=== PATIENT | male | born 1975 | race Two or more races ===

== ENCOUNTER 2024-07-12 19:34 | Emergency (ER) | payer MEDICAID, SELFPAY ==
[2024-07-12 19:51] VITALS: PULSE 77; O2SAT 98; BMI 33.3
[2024-07-12 21:08] VITALS: BP 130/85; PULSE 75; RESP 18; TEMP 36.4; O2SAT 98
--- NOTE | 2024-07-12 21:37 | XR_ITS ---
Examination: PA chest single view Technique: Upright PA chest single view Exam date and time: July 12, 2024 10:11 PM Indications: Chest pain shortness of breath today Findings: Normal heart size Atelectasis versus mild pneumonia left base Right lung clear Intact osseous structures Impression: Atelectasis versus mild pneumonia left base
[2024-07-12] MEDS: DIAZEPAM 5 MG TABLET 10 MG PO (21:58)
[2024-07-12 22:25] LABS: Amphetamine/Methamp Scrn,U Negative (Negative); Barbiturate Screen,Urine Negative (Negative); Benzodiazepines Screen,Urine Negative (Negative); Benzoylecgonine Screen, Ur Negative (Negative); Fentanyl Screen,Urine Negative (Negative); Opiate Screen,Urine Negative (Negative); THC Screen,Urine Negative (Negative)
[2024-07-12 22:26] VITALS: BP 132/81; PULSE 71; RESP 18; TEMP 36.8; O2SAT 96
[2024-07-12 22:37] LABS: Basophils % (Auto) 0 % (0-2.5); Eosinophils # (Auto) 0.1 Thou/mm3 (0.0-0.5); Eosinophils % (Auto) 1 % (0-10); Hematocrit 43.6 % (41.0-53.0); Hemoglobin 15.3 g/dL (13.5-16.0); Immature Granulocytes % (Auto) 0 % (0-0); Immature Granulocytes Auto 0.02 Thou/mm3 (0.00-0.00); Lymphocytes # (Auto) 2.6 Thou/mm3 (1.0-4.8); Lymphocytes % (Auto) 35 % (10-50); Mean Corpuscular HGB Conc 35.1 g/dl (31.0-37.0); Mean Corpuscular Hemoglobin 28.8 pg (25.0-35.0); Mean Corpuscular Volume 82 fL (80-100); Monocytes # (Auto) 0.7 Thou/mm3 (0.0-0.8); Monocytes % (Auto) 9 % (0-12); Neutrophils # (Auto) 3.9 Thou/mm3 (1.8-7.7); Neutrophils % (Auto) 53 % (37-80); Nucleated Red Blood Cell % 0 /100 WBC (0); Platelet Count 236 Thou/mm3 (140-440); RDW Standard Deviation 39.3 fL (35.1-43.9); Red Blood Count 5.32 Miln/mm3 (4.50-5.90); White Blood Count 7.4 Thou/mm3 (3.8-10.6)
[2024-07-12 22:56] LABS: B-Type Natriuretic Peptide < 20 pg/mL (0-100)
[2024-07-12 23:02] LABS: Anion Gap 8 (7-16); BUN/Creatinine Ratio 12 Ratio (12-20); Blood Urea Nitrogen 11 mg/dL (9-23); Carbon Dioxide 22.5 mMol/L (20.0-31.0); Chloride 110 mMol/L (98-107); Creatinine (Component) 0.9 mg/dL (0.6-1.3); Estimated Creatinine Clearance 103.9 mL/min (>60); Glucose 100 mg/dL (74-106); Potassium 3.8 mMol/L (3.4-5.1); Sodium 140 mMol/L (136-145); eGFR > 60 See Note
[2024-07-12 23:03] LABS: Alanine Aminotransferase 24 U/L (10-49); Albumin, Serum 4.4 gm/dL (3.5-5.0); Albumin/Globulin Ratio 1.7 (1.2-2.2); Alcohol, Blood Medical < 3.0 mg/dL (0-10.0); Alkaline Phosphatase 84 U/L (46-116); Aspartate Amino Transferase 20 U/L (0-34); Bilirubin,Total 0.5 mg/dL (0.3-1.2); Calcium 9.3 mg/dL (8.3-10.6); Calcium (Corrected) 9.3 mg/dL (8.5-10.1); Globulin 2.6 gm/dL (2.3-3.5); Osmolality,Calculated 278 (275-295); Troponin I < 0.002 ng/mL (0.0-0.045)
[2024-07-13 01:10] VITALS: BP 116/67; PULSE 64; RESP 18; TEMP 36.4; O2SAT 97
[2024-07-13 01:31] LABS: Lactate (Lactic Acid) 0.9 mMol/L (0.4-2.0)
[2024-07-13 02:05] LABS: Procalcitonin < 0.04 ng/ml (0.0-0.49); Troponin I < 0.002 ng/mL (0.0-0.045)
[2024-07-13 02:26] VITALS: BP 124/84; PULSE 70; RESP 17; TEMP 36.4; O2SAT 98
--- NOTE | 2024-07-13 02:37 | PD.EDANX ---
ED Anxiety RME/HPI General Chief Complaint: Anxiety Stated Complaint: LEFT LEG PAIN, ANXIETY Time Seen by Provider: 07/12/24 21:37 Arrival date/time: 07/12/24 19:34 48M with no significant PMH presents to ED with 2 days of generalized body pain including chest and LLE (latter 3 years). Patient has had increased stressors in his life recently, but denies SI/HI. Patient also denies leg swelling, URI symptoms, and SOB. Limitations: no limitations Related Data Allergies Allergy/AdvReac Type Severity Reaction Status Date / Time No Known Allergies Allergy Verified 07/12/24 19:54 Review of Systems Review of Systems Systems Reviewed: All systems reviewed, normal except as documented Constitutional Constitutional: Reports system reviewed and no additional complaints, except as documented, Denies fever(s) and Denies headache(s) ENT Ears, Nose, Mouth, and Throat: Denies disequilibrium and Denies headache(s) Cardiovascular Cardiovascular: Reports system reviewed and no additional complaints, except as documented, Reports as per HPI, Reports chest pain and Denies dyspnea Respiratory Respiratory: Reports system reviewed and no additional complaints, except as documented, Denies cough and Denies dyspnea Gastrointestinal Gastrointestinal: Reports system reviewed and no additional complaints, except as documented, Denies abdominal pain, Denies nausea and Denies vomiting Musculoskeletal Musculoskeletal: Reports as per HPI and Reports myalgias Neurologic Neurologic: Reports system reviewed and no additional complaints, except as documented, Denies confusion, Denies disequilibrium and Denies headache(s) Psychiatric Psychiatric: Denies confusion Past Medical History Social History SMOKING STATUS: Never smoker ED Exam General Limitations: Present no limitations General appearance: Present alert, in no apparent distress and anxious Head Head exam: Present atraumatic Eye Eye exam: Present normal appearance, PERRL and EOMI ENT ENT exam: Present normal exam, normal oropharynx and mucous membranes moist Neck Neck exam: Present normal inspection, full ROM and trachea midline Chest Chest inspection: Present normal inspection and symmetric chest wall rise Respiratory Respiratory exam: Present normal lung sounds bilaterally Cardiovascular Cardiovascular exam: Present regular rate, normal rhythm and normal heart sounds Abdominal Exam Abdominal exam: Present soft and normal bowel sounds Extremities Exam Extremities exam: Present normal inspection and full ROM Back Exam Back exam: Present normal inspection and full ROM Neurological Exam Neurological exam: Present alert, oriented X3 and CN II-XII intact Psychiatric Psychiatric exam: Present normal affect and normal mood Skin Skin exam: Present warm, dry, intact and normal color Course Quality Measures none Orders Category Date Time Status EKG (ED ONLY) *Do not use* NOW Care 07/12/24 21:26 Completed EKG (ED Only) Stat Exams 07/12/24 21:26 Ordered XR chest 1V portable Stat Exams 07/12/24 21:37 Completed Alcohol, Blood Medical Stat Lab 07/12/24 22:28 Completed B-Type Natriuretic Peptide Stat Lab 07/12/24 22:28 Completed CBC Stat Lab 07/12/24 22:28 Completed Comprehensive Metabolic Panel Stat Lab 07/12/24 22:28 Completed Drug Screen,Urine Stat Lab 07/12/24 22:00 Completed Lactate (Lactic Acid) Stat Lab 07/13/24 01:22 Completed Procalcitonin Stat Lab 07/13/24 01:22 Completed Troponin I Stat Lab 07/12/24 22:28 Completed Troponin I Stat Lab 07/13/24 01:22 Completed Diazepam [Valium] Med 07/12/24 21:37 Discontinued 10 mg PO X1 ONE Vital Signs Vital signs: Vital Signs Temperature 97.5 F 07/12/24 21:08 Pulse Rate 75 07/12/24 21:08 Respiratory Rate 18 07/12/24 21:08 Blood Pressure 130/85 H 07/12/24 21:08 Pulse Oximetry (%) 98 07/12/24 21:08 Oxygen Delivery Method Room Air 07/12/24 21:08 Anxiety MDM Narrative MDM Narrative: 48M with no significant PMH presents to ED with 2 days of generalized body pain including chest and LLE (latter 3 years). Patient has had increased stressors in his life recently, but denies SI/HI. Patient also denies leg swelling, URI symptoms, and SOB. Physical exam reveals normal WOB. RRR. Patient is afebrile, alert, but appears both anxious/downcast/depressed. EKG is NSR. CXR possible PNA, but patient denies cough. BNP normal. Trop (2x) normal. Procal/lactate normal. Tox/alcohol screen neg. Valium improved symptoms. Likely stress reaction. Patient data External records reviewed:: None Clinical information provided by:: patient Social determinants that could affect healthcare access:: none Patient has the following chronic illnesses:: none How is presenting disease/condition affected by chronic disease/condition?: no chronic disease Evaluation data The following diagnostics were reviewed and interpreted by me:: lab results, radiology exam(s) and EKG tracing(s) Lab and/or radiology exams considered but not ordered:: ordered Interpretation Summary: above Medications / Prescriptions Medications or Prescriptions considered but not ordered:: ordered Medication administrations:: Medication Administration History Discontinued Medications Diazepam (Diazepam 5 Mg Tablet) 10 mg PO X1 ONE Stop: 07/12/24 21:38 Last Admin: 07/12/24 21:58 Dose: 10 mg Documented By: EE Consultations Consultation(s) initiated? (list below): No Diagnosis Differential diagnosis anxiety: hyperventilation, panic disorder, acute anxiety and other (ACS, PNA, stress reaction) Most likely diagnosis given after review of the tests above:: stress reaction Admission Indicated Admission indicated?: not indicated Admission Request Was there a request for admission?: No Disposition Plan Disposition Plan: Discharge Discharge Attestation Discharge Attestation: The patient and all family members were given an opportunity to ask questions and understood the discharge instructions. Discharge instructions specifically effects, indications for sooner follow up or return to the emergency department, and the expected course of current diagnosis. Patient condition: Stable Discharge Plan Plan Patient Disposition: HOME (Self Care) Disposition Comment: Stable Prescriptions/Referrals Referrals: No Primary/Family,Physician [Primary Care Provider] - In 1 week Problem List Clinical Impression: Stress reaction causing mixed disturbance of emotion and conduct Patient/Caregiver Discharge Instructions Education Materials: Your Body's Response to Anxiety Additional Instructions: Please follow-up with PCP within 24-48 hours and return immediately if symptoms worsen. Good luck with your family situation. Print Language: [place] Stand Alone Forms: Patient Portal Info Letter ZAID/[id number] Supervising Physician GERRI Supervising Physician: Dr. Delaney
== END 2024-07-13 02:35 | disposition home or self-care (01) ==
PROVIDERS: Physician Assistant; Emergency Provider Emergency Medicine
DX: F43.89 Other reactions to severe stress (principal); R07.9 Chest pain, unspecified; R06.02 Shortness of breath; I45.10 Unspecified right bundle-branch block
CPT/HCPCS: 36415; 71045; 80053; 80307; 80320; 83605; 83880; 84145; 84484; 85025; 93005; 99283; A9270; G0480